=== PATIENT | female | born 1950 | race Caucasian/White ===

== ENCOUNTER 2016-07-07 19:27 | Emergency (ER) | payer MEDICAID ==
--- NOTE | 2016-07-07 19:39 | CPEKG ---
Heart Rate: 78 RR Interval: 769 P-R Interval: 132 QRSD Interval: 84 QT Interval: 388 QTC Interval: 442 P Latham: 69 QRS Latham: 60 T Wave Latham: 54 EKG Severity - NORMAL ECG - EKG Impression: SINUS RHYTHM EKG Impression: Similar to previous in 2009 Electronically Signed By: Sp Ramos 07-Jul-2016 20:01:13
[2016-07-07 19:52] VITALS: BP 119/76; PULSE 74; RESP 18; TEMP 208.4; O2SAT 97
[2016-07-07] MEDS ORDERED: ASPIRIN 81 MG CHEWABLE TAB PO ONE ×2 (19:56→20:26)
[2016-07-07] MEDS ORDERED: NS 1,000 ML IV ONE (19:56)
--- NOTE | 2016-07-07 20:00 | UCPHY ---
H & P Patient Type: Established (Partial list of the Differential diagnosis considered include but were not limited to; [] and although unlikely based on the history and physical exam, I also considered []. I discussed these differential diagnoses and the plan with the [patient] as well as the usual and expected course. The [patient understands] that the diagnosis is provisional and that in medicine we are not always correct and that further workup is often warranted. Usual and customary warnings were given. All of the [patient's] questions were answered. The [patient was] instructed to return to the emergency department should the symptoms at all worsen or return, otherwise to followup with the physician as we discussed.) Chief Complaint Nursing Narrative: c/o SOB/Lt arm pain rad up to jaw on and off x 1 week- currently no pain Time Seen by Provider: 07/07/16 19:49 HPI/ROS: CHIEF COMPLAINT: Arm and jaw pain HISTORY OF PRESENT ILLNESS: Patient is a 66-year-old female smoker who comes to the Urgent Care complaining of left arm and jaw pain with exertion. She states that every time she gets up and walks she has pain that subsides with rest. She denies chest pain or shortness of breath. She denies any trauma. She did have a cold last week that she is now getting over. She also has a history of alcohol abuse. She classifies her symptoms as mild. No palpitations and lightheadedness. According to the medical record she has a history of COPD but she denies this. REVIEW OF SYSTEMS: Constitutional: denies: chills, fever, recent illness, recent injury EENTM: denies: blurred vision, double vision, nose congestion Respiratory: denies: cough, shortness of breath Cardiac: See HPI Gastrointestinal/Abdominal: denies: abdominal pain, diarrhea, nausea, vomiting, blood streaked stools Genitourinary: denies: dysuria, frequency, hematuria, pain Musculoskeletal: denies: joint pain, muscle pain Skin: denies: lesions, rash, jaundice, bruising Neurological: denies: headache, numbness, paresthesia, tingling, dizziness, weakness Hematologic/Lymphatic: denies: blood clots, easy bleeding, easy bruising Immunologic/allergic: denies: HIV/AIDS, transplant EXAM: GENERAL: Well-appearing, well-nourished and in no acute distress. HEAD: Atraumatic, normocephalic. EYES: Pupils equal round and reactive to light, extraocular movements intact, sclera anicteric, conjunctiva are normal. ENT: TMs normal, nares patent, oropharynx clear without exudates. Moist mucous membranes. NECK: Normal range of motion, supple without lymphadenopathy or JVD. LUNGS: Breath sounds clear to auscultation bilaterally and equal. No wheezes rales or rhonchi. HEART: Regular rate and rhythm without murmurs, rubs or gallops. ABDOMEN: Soft, nontender, normoactive bowel sounds. No guarding, no rebound. No masses appreciated. BACK: No CVA tenderness, no spinal tenderness, step-offs or deformities EXTREMITIES: Normal range of motion, no pitting or edema. No clubbing or cyanosis. NEUROLOGICAL: Cranial nerves II through XII grossly intact. Normal speech, normal gait. 5/5 strength, normal movement in all extremities, normal sensation PSYCH: Normal mood, normal affect. SKIN: Warm, dry, normal turgor, no visible rashes or lesions. Source: Patient Exam Limitations: No limitations - Personal History Current Tetanus Diphtheria and Acellular Pertussis (TDAP): Yes - Medical/Surgical History Hx Asthma: No Hx Chronic Respiratory Disease: Yes Hx Diabetes: No Hx Cardiac Disease: No Hx Renal Disease: No Hx Cirrhosis: No Hx Alcoholism: No Hx HIV/AIDS: No Hx Splenectomy or Spleen Trauma: No Other PMH: 1. HIGH CHOLESTROL. 2. Alcohol abuse in recovery for 7 months. 3. Tobacco abuse, smoking 1 pack per day, 30 pack year history. 4. COPD on Spiriva - Family History Significant Family History: COPD, Hypertension - Social History Smoking Status: Current every day smoker Alcohol Use: Sober Drug Use: None Constitutional: Initial Vital Signs Temperature (C) 98 C H 07/07/16 19:50 Heart Rate 74 07/07/16 19:50 Respiratory Rate 18 07/07/16 19:50 Blood Pressure 119/76 07/07/16 19:50 O2 Sat (%) 97 07/07/16 19:50 O2 Delivery Mode Room Air Allergies/Adverse Reactions: codeine [Codeine] Allergy (Intermediate, Verified 03/20/16 12:34) Home Medications: Medication Instructions Recorded Cholestrol Med 03/20/16 Aspirin 325 mg (*) 07/07/16 traZODone 07/07/16 Medical Decision Making - Diagnostics EKG Interpretation: An EKG obtained and was read and documented in trace view. Please see trace view for full reading and report. Sinus rhythm, no acute ischemic changes no right heart strain Imaging: X-ray: chest x-ray was obtained. I viewed the images myself on the PACS system. My interpretation of the images is: negative for acute disease . The radiologist interpretation is negative. ED Course/Re-evaluation: 9:00 p.m. we discussed the patient's lab and x-ray results. She is relieved. We discussed the possibility of pleurisy or costochondritis considering her recent upper respiratory infection. Offered admission for further workup and testing. She refuses and is eager to go home. She will follow up with her doctor Sarath tomorrow or Monday. I recommended she return here or go to the emergency department if her symptoms worsen. Additional verbal discharge instructions given. Differential Diagnosis: Partial list of the Differential diagnosis considered include but were not limited to; pleurisy, costochondritis, pericarditis, bronchitis, pneumonia and although unlikely based on the history and physical exam, I also considered PE, acute coronary disease, dissection. I discussed these differential diagnoses and the plan with the patient as well as the usual and expected course. The patient understands that the diagnosis is provisional and that in medicine we are not always correct and that further workup is often warranted. Usual and customary warnings were given. All of the patient's questions were answered. The patient was instructed to return to the emergency department should the symptoms at all worsen or return, otherwise to followup with the physician as we discussed. - Data Points Laboratory Results: Laboratory Results 07/07/16 20:00 07/07/16 20:00 07/07/16 20:00 WBC 8.52 10^3/uL (3.80-9.50) RBC 4.87 10^6/uL (4.18-5.33) Hgb 14.1 g/dL (12.6-16.3) Hct 42.9 % (38.0-47.0) MCV 88.1 fL (81.5-99.8) MCH 29.0 pg (27.9-34.1) MCHC 32.9 g/dL (32.4-36.7) RDW 13.7 % (11.5-15.2) Plt Count 305 10^3/uL (150-400) MPV 10.4 fL (8.7-11.7) Neut % (Auto) 51.9 % (39.3-74.2) Lymph % (Auto) 35.6 % (15.0-45.0) [place] % (Auto) 7.5 % (4.5-13.0) Eos % (Auto) 4.3 % (0.6-7.6) Baso % (Auto) 0.5 % (0.3-1.7) Nucleat RBC Rel Count 0.0 % (0.0-0.2) Absolute Neuts (auto) 4.42 10^3/uL (1.70-6.50) Absolute Lymphs (auto) 3.03 H 10^3/uL (1.00-3.00) Absolute Monos (auto) 0.64 10^3/uL (0.30-0.80) Absolute Eos (auto) 0.37 10^3/uL (0.03-0.40) Absolute Basos (auto) 0.04 10^3/uL (0.02-0.10) Absolute Nucleated RBC 0.00 10^3/uL (0-0.01) Immature Gran % 0.2 % (0.0-1.1) Immature Gran # 0.02 10^3/uL (0.00-0.10) PT 11.9 L SEC (12.0-15.0) INR 0.89 (0.83-1.16) APTT 30.9 SEC (23.0-38.0) D-Dimer 0.44 ug/mLFEU (0.00-0.50) Sodium 137 mEq/L (134-144) Potassium 4.2 mEq/L (3.5-5.2) Chloride 103 mEq/L (97-110) Carbon Dioxide 26 mEq/l (22-31) Anion Gap 8 mEq/L (8-16) BUN 13 mg/dL (7-23) Creatinine 0.8 mg/dL (0.6-1.0) Estimated GFR > 60 Glucose 95 mg/dL (70-100) Calcium 9.6 mg/dL (8.5-10.4) Troponin I < 0.012 ng/mL (0-0.034) Medications Given: Discontinued Medications Aspirin (Aspirin) 162 mg PO EDNOW ONE Stop: 07/07/16 20:27 Last Admin: 07/07/16 20:26 Dose: 162 mg Sodium Chloride (Ns) 1,000 mls @ 0 mls/hr IV ONCE ONE PRN Reason: Wide Open Stop: 07/07/16 19:57 Last Admin: 07/07/16 20:30 Dose: 1,000 mls Departure - Departure Disposition: Home, Routine, Self-Care Clinical Impression: Jaw pain Condition: Fair Instructions: Arm Pain (ED), Chest Pain (ED) Referrals: Rose Clemens MD [Primary Care Provider] - 1-2 days without fail - PQRS PQRS Measurement: 134: Depression screening and followup, PRIME MD-PHQ2 (12 years and older) Over the last 2 weeks, how often have you been bothered by any of the following problems? 1. Feeling down, depressed, or hopeless? 2. Little interest or pleasure in doing things? Patient answered no to both 1 and 2 130: Documentation of medications. Reviewed all patient medications, doses, route and frequency. 226: Do you smoke? Yes, discussed cessation 47: 65 and older: Advanced care planning. Patient designates surrogate decision maker as spouse . Patient has advanced directive. 51: 18 years old and older with diagnosis of COPD, spirometry performance. Spirometry not performed; equipment not available. 52: 18 years old and older with COPD and symptoms of COPD or FEV1<60% predicted prescribed a B Agonist. Not applicable
[2016-07-07 20:04] LABS: % IMMATURE GRANULYOCYTES 0.2 % (0.0-1.1); ABSOLUTE IMMATURE GRANULOCYTES 0.02 10^3/uL (0.00-0.10); ADD DIFF? NO; HEMATOCRIT 42.9 % (38.0-47.0); HEMOGLOBIN 14.1 g/dL (12.6-16.3); LEFT SHIFT FLG 0 (0-99); MEAN CELL HEMOGLOBIN CONCENTR. 32.9 g/dL (32.4-36.7); MEAN CELL VOLUME 88.1 fL (81.5-99.8); MEAN PLATELET VOLUME 10.4 fL (8.7-11.7); PLATELET COUNT 305 10^3/uL (150-400); RED BLOOD CELL COUNT 4.87 10^6/uL (4.18-5.33); RED CELL DISTRIBUTION WIDTH 13.7 % (11.5-15.2)
[2016-07-07 20:05] LABS: ADD MORPH? NO; ADD SCAN? NO; ATYPICAL LYMPHOCYTE FLAG 20 (0-99); FRAGMENT RBC FLAG 0 (0-99); LIPEMIA HEMOLYSIS FLAG 80 (0-99); PLATELET CLUMPS FLAG 0 (0-99)
[2016-07-07 20:14] LABS: APTT 30.9 SEC (23.0-38.0); INR 0.89 (0.83-1.16); PROTIME(PATIENT) 11.9 SEC (12.0-15.0)
--- NOTE | 2016-07-07 20:20 | DX ---
Chest, PA and Lateral History: Chest pain. Left arm pain. Comparison: November 10, 2014 Findings: Lungs clear. Heart normal. No pneumothorax or pleural effusion. There are old healed left l ateral 6th through 9th rib fracture deformities. No new fractures are identified. There is a stable o ld mild T11 compression. EKG leads overlie the chest. Impression: Stable since October 2014. Nothing acute identified.
[2016-07-07 20:23] LABS: ANION GAP 8 mEq/L (8-16); CALCIUM 9.6 mg/dL (8.5-10.4); CARBON DIOXIDE 26 mEq/l (22-31); CHLORIDE 103 mEq/L (97-110); CREATININE 0.8 mg/dL (0.6-1.0); GLOMERULAR FILTRATION RATE > 60; GLUCOSE 95 mg/dL (70-100); POTASSIUM 4.2 mEq/L (3.5-5.2); SODIUM 137 mEq/L (134-144)
[2016-07-07 20:27] LABS: TROPONIN I < 0.012 ng/mL (0-0.034)
== END 2016-07-07 21:10 | disposition home or self-care (01) ==
LOC: CED 19:27
DX: M79.602 Pain in left arm (principal); R68.84 Jaw pain; E78.00 Pure hypercholesterolemia, unspecified; J44.9 Chronic obstructive pulmonary disease, unspecified; Z72.0 Tobacco use; F10.21 Alcohol dependence, in remission
CPT/HCPCS: 71020-PO; 80048-PO; 84484-PO; 85025-PO; 85378-PO; 85610-PO; 85730-PO; 93010-PO; 99215-PO; G0463-PO

== ENCOUNTER 2016-10-24 09:42 | Observation (INO) | payer MEDICAID ==
[2016-10-24] MEDS ORDERED: DIAZEPAM 5 MG TAB PO ONE (09:47)
[2016-10-24] MEDS ORDERED: diphenhydrAMINE 25 MG CAP PO ONE ×2 (09:47→10:02)
[2016-10-24] MEDS ORDERED: NS 1,000 ML IV ONE (09:47)
[2016-10-24] MEDS ORDERED: ASPIRIN EC 325 MG TAB PO ONE ×2 (09:47→10:02)
[2016-10-24] MEDS ORDERED: FAMOTIDINE 20 MG TAB PO ONE (09:47)
[2016-10-24] MEDS ORDERED: HEPARIN 10,000 UNIT/10 ML MDV ONE (09:55)
[2016-10-24] MEDS ORDERED: MIDAZOLAM 2 MG/2 ML VIAL ONE ×2 (09:55→11:20)
[2016-10-24] MEDS ORDERED: VERAPAMIL 5 MG/2 ML VIAL ONE (09:55)
[2016-10-24] MEDS ORDERED: LIDOCAINE 1% 30 ML SDV ONE (09:55)
[2016-10-24] MEDS ORDERED: fentaNYL 100 MCG/2 ML INJ ONE ×2 (09:55→11:20)
[2016-10-24] MEDS ORDERED: IOPAMIDOL (ISOVUE-370) 150 ML BTL IV ONE ×2 (09:55→11:08)
[2016-10-24] MEDS ORDERED: FAMOTIDINE 20 MG TAB ONE (10:02)
[2016-10-24] MEDS ORDERED: DIAZEPAM 5 MG TAB ONE (10:02)
--- NOTE | 2016-10-24 10:03 | CPEKG ---
Heart Rate: 82 RR Interval: 732 P-R Interval: 118 QRSD Interval: 86 QT Interval: 380 QTC Interval: 444 P Matthews: 66 QRS Matthews: 65 T Wave Matthews: 45 EKG Severity - BORDERLINE ECG - EKG Impression: SINUS RHYTHM EKG Impression: VENTRICULAR PREMATURE COMPLEX EKG Impression: PROBABLE LEFT ATRIAL ABNORMALITY Electronically Signed By: Fredrick Saunders 25-Oct-2016 06:35:22
[2016-10-24 10:24] LABS: % IMMATURE GRANULYOCYTES 0.4 % (0.0-1.1); ABSOLUTE IMMATURE GRANULOCYTES 0.04 10^3/uL (0.00-0.10); ADD DIFF? NO; ADD MORPH? NO; ADD SCAN? NO; ATYPICAL LYMPHOCYTE FLAG 0 (0-99); FRAGMENT RBC FLAG 0 (0-99); HEMATOCRIT 42.8 % (38.0-47.0); HEMOGLOBIN 14.1 g/dL (12.6-16.3); LEFT SHIFT FLG 0 (0-99); LIPEMIA HEMOLYSIS FLAG 80 (0-99); MEAN CELL HEMOGLOBIN 29.3 pg (27.9-34.1); MEAN CELL HEMOGLOBIN CONCENTR. 32.9 g/dL (32.4-36.7); MEAN PLATELET VOLUME 10.7 fL (8.7-11.7); PLATELET CLUMPS FLAG 20 (0-99); PLATELET COUNT 245 10^3/uL (150-400); RED BLOOD CELL COUNT 4.81 10^6/uL (4.18-5.33); RED CELL DISTRIBUTION WIDTH 14.3 % (11.5-15.2)
[2016-10-24 10:35] LABS: ANION GAP 6 mEq/L (8-16); CALCIUM 9.6 mg/dL (8.5-10.4); CARBON DIOXIDE 23 mEq/l (22-31); CHLORIDE 108 mEq/L (97-110); CHOLESTEROL 212 mg/dL (140-220); CHOLESTEROL/HDL RATIO 2.62 RATIO (1.00-4.44); CREATININE 0.6 mg/dL (0.6-1.0); GLOMERULAR FILTRATION RATE > 60; GLUCOSE 103 mg/dL (70-100); HIGH DENSITY LIPOPROTEIN 81 mg/dL (40-85); LDL/HDL RATIO 1.37 RATIO (1.00-3.22); LOW DENSITY LIPOPROTEIN 111 mg/dL (80-100); MAGNESIUM 1.9 mg/dL (1.6-2.3); NON-HIGH DENSITY LIPOPROTEIN 131 mg/dL (90-129); POTASSIUM 4.6 mEq/L (3.5-5.2); SODIUM 137 mEq/L (134-144); TRIGLYCERIDE 100 mg/dL (35-135); VERY LOW DENSITY LIPOPROTEINS 20 mg/dL (8-25)
[2016-10-24 10:54] LABS: PROTIME(PATIENT) 13.1 SEC (12.0-15.0)
[2016-10-24] MEDS ORDERED: NITROGLYCERIN 1,500 MCG/15 ML VIAL MISC ONE (11:09)
[2016-10-24] MEDS ORDERED: CLOPIDOGREL BISULFATE 75 MG TAB ONE (11:39)
[2016-10-24] MEDS ORDERED: ONDANSETRON 4 MG/2 ML VIAL IVP PRN (11:56)
[2016-10-24] MEDS ORDERED: ATROPINE SULFATE 1 MG/10 ML SYR IVP PRN (11:56)
[2016-10-24] MEDS ORDERED: TEMAZEPAM 15 MG CAP PO PRN (11:56)
[2016-10-24] MEDS ORDERED: CLOPIDOGREL BISULFATE 75 MG TAB PO ONE (11:56)
[2016-10-24] MEDS ORDERED: LORazepam 2 MG/ML INJ IVP PRN (11:56)
[2016-10-24] MEDS ORDERED: NITROGLYCERIN 0.4 MG BTL SL PRN (11:56)
[2016-10-24] MEDS ORDERED: NS 1,000 ML IV SCH (12:00)
--- NOTE | 2016-10-24 12:05 | PDDXCAT ---
Diagnostic Cath Note - . Date: 10/24/16 French Drawer: Marlon Indication: Class I/II angina, intolerance to med therapy or failure to respond High-risk criteria on non-invasive testing: stress-induced moderate-size multiple perfusion defects - Procedure Access: right wrist Procedure: left heart catheterization, coronary angiography, left ventriculogram - Materials Left Heart Cath size: 5F Left Heart Cath materials: pigtail Right Heart Cath size: 5F - Findings-Left Heart Catheterization LM: unobstructed LAD: 75% mid eccentric LCX: unobstructed RCA: 100% occluded with [id number] collaterals EDP: 12 mm of mercury LVEF: 65% Wall motion: normal Complications: none Estimated blood loss: <50ml Closure method: TR Band Assessment: Severe 2 vessel coronary artery disease with occluded right coronary artery fed by collaterals, 75% mid LAD. Normal LV systolic function with normal filling pressures. Typical angina radiating to the jaw with abnormal stress test Plan: 2 vessel PCI Intervention: after reviewing diagnostic angiograms is elected to proceed with PCI. Patient was anticoagulated with heparin. Using a 5 Portuguese JR4 guiding catheter the right coronary selectively intubated. Using a 0.014 luge wire the RCA stenosis was crossed with a wire placed in the distal vessel. The artery was reopened with a 2 mm balloon and 3 inflations. Repeat angiogram showed HILLARY grade 2 flow. Further guiding shots were obtained. Using a 38 mm 2.5 synergy stent the lesion was crossed distal edge was placed at the crux. It was deployed using a single inflation.a 3.0 by 24 mm synergy stent was placed proximally. And deployed using a single inflation. Stent balloon was used to post dilate the stent and performed inflation at the overlap. Repeat angiogram revealed HILLARY grade 3 flow. Therapeutic ACT was confirmed. Using a radial left coronary backup guiding catheter the left main coronary selectively intubated. Guiding shots were performed. Using the same 0.014 luge wire the LAD stenosis was crossed. The lesion was primarily stented with a 3.0 x 12 mm synergy stent. Stent balloon was used to post dilate the lesion. Final orthogonal angiogram showed HILLARY grade 3 flow. Patient was loaded with Plavix. She is taken to the recovery for continued care. During the course of the examination she did developed typical angina with radiation to the jaw. Conclusions: Successful 2 vessel PCI of the RCA and LAD. Pursue aggressive secondary prevention in particular tobacco cessation. Patient Problems: Problems Problem Status Onset Status post insertion of drug-eluting stent into left anterior descending (LAD) artery Acute Coronary artery disease Acute
--- NOTE | 2016-10-24 12:17 | CPEKG ---
Heart Rate: 89 RR Interval: 674 P-R Interval: 144 QRSD Interval: 90 QT Interval: 384 QTC Interval: 468 P Gary: 66 QRS Gary: 77 T Wave Gary: 44 EKG Severity - ABNORMAL ECG - EKG Impression: SINUS RHYTHM EKG Impression: LEFT ATRIAL ABNORMALITY Electronically Signed By: Fredrick Saunders 25-Oct-2016 06:35:04
[2016-10-24] MEDS ORDERED: ALBUTEROL 60 PUFFS/8 GM MDI IH PRN (15:15)
[2016-10-24] MEDS ORDERED: ATORVASTATIN CALCIUM 10 MG TAB PO SCH (21:00)
[2016-10-24] MEDS ORDERED: traZODone 50 MG TAB PO SCH (21:00)
[2016-10-25 04:08] LABS: % IMMATURE GRANULYOCYTES 0.1 % (0.0-1.1); ABSOLUTE IMMATURE GRANULOCYTES 0.01 10^3/uL (0.00-0.10); ADD DIFF? NO; ADD MORPH? NO; ADD SCAN? NO; ATYPICAL LYMPHOCYTE FLAG 0 (0-99); FRAGMENT RBC FLAG 0 (0-99); HEMATOCRIT 39.1 % (38.0-47.0); HEMOGLOBIN 12.8 g/dL (12.6-16.3); LEFT SHIFT FLG 0 (0-99); LIPEMIA HEMOLYSIS FLAG 80 (0-99); MEAN CELL HEMOGLOBIN 29.2 pg (27.9-34.1); MEAN CELL HEMOGLOBIN CONCENTR. 32.7 g/dL (32.4-36.7); MEAN CELL VOLUME 89.3 fL (81.5-99.8); MEAN PLATELET VOLUME 10.9 fL (8.7-11.7); PLATELET CLUMPS FLAG 0 (0-99); PLATELET COUNT 220 10^3/uL (150-400); RED BLOOD CELL COUNT 4.38 10^6/uL (4.18-5.33); RED CELL DISTRIBUTION WIDTH 14.5 % (11.5-15.2)
[2016-10-25 04:30] LABS: ALBUMIN 2.9 g/dL (3.5-5.0); ANION GAP 4 mEq/L (8-16); ASPARTATE AMINOTRANSFERASE 18 IU/L (14-46); BILIRUBIN,TOTAL 0.4 mg/dL (0.1-1.4); CALCIUM 8.7 mg/dL (8.5-10.4); CARBON DIOXIDE 22 mEq/l (22-31); CHLORIDE 112 mEq/L (97-110); CREATININE 0.6 mg/dL (0.6-1.0); GLOMERULAR FILTRATION RATE > 60; GLUCOSE 80 mg/dL (70-100); LACTATE DEHYDROGENASE 413 IU/L (313-618); MAGNESIUM 1.8 mg/dL (1.6-2.3); SODIUM 138 mEq/L (134-144)
[2016-10-25 07:18] VITALS: BP 117/67; TEMP 98
[2016-10-25] MEDS ORDERED: TIOTROPIUM INHALER 18 MCG/DOSE 5 DOSE/MDI IH SCH (09:00)
[2016-10-25] MEDS ORDERED: ASPIRIN EC 325 MG TAB PO SCH (09:00)
[2016-10-25] MEDS ORDERED: ASPIRIN EC 81 MG TAB PO SCH (09:00)
[2016-10-25] MEDS ORDERED: CLOPIDOGREL BISULFATE 75 MG TAB PO SCH (09:00)
[2016-10-25 09:07] VITALS: RESP 15; O2SAT 94
--- NOTE | 2016-10-25 09:08 | CPEKG ---
Heart Rate: 79 RR Interval: 759 P-R Interval: 100 QRSD Interval: 90 QT Interval: 380 QTC Interval: 436 P Peculiar: 76 QRS Peculiar: 80 T Wave Peculiar: 52 EKG Severity - BORDERLINE ECG - EKG Impression: SINUS RHYTHM EKG Impression: SHORT NV INTERVAL, ACCELERATED AV CONDUCTION Electronically Signed By: Fredrick Saunders 26-Oct-2016 09:08:41
[2016-10-25 11:22] VITALS: PULSE 94
--- NOTE | 2016-10-25 12:56 | GDS ---
[f rep st] DISCHARGE SUMMARY DISCHARGE DIAGNOSES: 1. Episodic angina with CCS class 2-3 symptoms. 2. Dyspnea on exertion. 3. Abnormal nuclear stress test. 4. History of positive coronary artery calcium scoring. 5. History of hypertension. 6. History of dyslipidemia. 7. Severe 2 vessel coronary artery disease with an occluded right coronary artery with Left to Right collaterals and a 75% mid LAD stenosis. This was treated with PTCA and stenting, with 38 mm x 2.5 synergy stent to the RCA and then a 3.0 x 12 mm synergy stent to the LAD. 8. Ongoing tobacco abuse. PROCEDURES: Left heart catheterization with percutaneous interventions to the LAD and RCA. EF of 65%. LVEDP of 12 mmHg. BRIEF HISTORY: Please see dictated H and P from our office for complete details. In brief, the patient is a 66-year-old female with ongoing tobacco abuse, COPD, CAD on previous CT scans, dyslipidemia, who was seen in our office after episodes of elbow pain that would radiate into her anterior chest and jaw in the setting of a URI. She proceeded to nuclear stress testing, given her ongoing cardiac risk factors. She was found to have an inferior reversible defect. Options were reviewed, and given patient's ongoing dyspnea, as well as the symptoms previously suggestive of angina, she had a left heart catheterization, which showed obstructive lesions present in the RCA and LAD. HOSPITAL COURSE BY PROBLEM: 1. Angina. She is status post PTCA and stenting. 2. Dyslipidemia. LDL is above goal at 111, we will increase her atorvastatin to 20 mg daily. PHYSICAL EXAM: VITAL SIGNS: On day of discharge, blood pressure 117/67, heart rate 83, respirations 22, O2 saturation 92% on room air, temp of 98 degrees. GENERAL: She is a very pleasant female, in no apparent distress. EYES: SHREYAS without scleral icterus. HEART: Regular rate and rhythm. LUNGS: Clear. Right wrist site with some ecchymosis, without bruit or tenderness on palpation. LABORATORY DATA: CBC: With WBC 10.04, hemoglobin 12.8, hematocrit 39.1, platelet count of 220. BMP: With sodium 138, potassium 4, chloride 112, CO2 22 , BUN 12, creatinine 0.6, glucose 80. Triglycerides 100, total cholesterol 212 , LDL of 111, HDL of 81. RESULTS PENDING: None. DIET: Cardiac. DISCHARGE MEDICATIONS: Please see med reconciliation for complete details. She will continue her trazodone, Spiriva and Ventolin. Her Plavix dose has been increased to 20 mg p.o. daily. She is started on Plavix 75 mg p.o. daily. Her aspirin dose has been increased from 81 mg p.o. daily to 325 mg p.o. daily. This should be continued for 1 month at the higher dose, after that she may resume the 81 mg daily dose. DISCHARGE INSTRUCTIONS: 1. Smoking cessation reviewed. 2. Follow up in clinic in 1-2 weeks time. 3. Risk precautions reviewed. /[id number]/MODL MTDD
== END 2016-10-25 10:57 | disposition home or self-care (01) ==
LOC: FCATH 09:42 → F2W 11:56
PROVIDERS: ADMIT Internal Medicine Interventional Cardiology; ATTEND Internal Medicine Interventional Cardiology
PROC: B2151ZZ Fluoroscopy of Left Heart using Low Osmolar Contrast (ICD-10-PCS; principal; 2016-10-24)
PROC: B2111ZZ Fluoroscopy of Multiple Coronary Arteries using Low Osmolar Contrast (ICD-10-PCS; principal; 2016-10-24)
PROC: 4A023N7 Measurement of Cardiac Sampling and Pressure, Left Heart, Percutaneous Approach (ICD-10-PCS; principal; 2016-10-24)
PROC: 027135Z Dilation of Coronary Artery, Two Arteries with Two Drug-eluting Intraluminal Devices, Percutaneous Approach (ICD-10-PCS; principal; 2016-10-24)
DX: I25.118 Atherosclerotic heart disease of native coronary artery with other forms of angina pectoris (principal); E78.5 Hyperlipidemia, unspecified; I10 Essential (primary) hypertension; F17.210 Nicotine dependence, cigarettes, uncomplicated; J44.9 Chronic obstructive pulmonary disease, unspecified
CPT/HCPCS: 92928; 93005; 93458; C1725; C1769; C1887; G0378; C1874; C9600; J1644; J2250; J3010; Q9967

== ENCOUNTER → 2017-05-23 | Outpatient (CLI) | payer OTHER | LOC: BRMIMAGING 11:05 | PROVIDERS: ATTEND Family Medicine | DX: Z12.31 Encounter for screening mammogram for malignant neoplasm of breast (principal) | CPT/HCPCS: G0202 ==

== ENCOUNTER → 2018-07-09 | Outpatient (CLI) | payer OTHER | LOC: BRMIMAGING 13:53 | PROVIDERS: ATTEND Family Medicine | DX: Z12.31 Encounter for screening mammogram for malignant neoplasm of breast (principal) ==

== ENCOUNTER → 2018-07-25 | Outpatient (CLI) | payer OTHER | LOC: BRMIMAGING 13:53 | PROVIDERS: ATTEND Family Medicine | DX: Z13.820 Encounter for screening for osteoporosis (principal); M81.0 Age-related osteoporosis without current pathological fracture; F17.210 Nicotine dependence, cigarettes, uncomplicated; E28.39 Other primary ovarian failure; Z78.0 Asymptomatic menopausal state ==

== ENCOUNTER → 2018-07-26 | Outpatient (CLI) | payer OTHER | LOC: CIMAGING 11:06 | PROVIDERS: ATTEND Family Medicine | DX: R91.1 Solitary pulmonary nodule (principal); F17.210 Nicotine dependence, cigarettes, uncomplicated; J94.2 Hemothorax; Z98.890 Other specified postprocedural states ==